=== PATIENT | female | born 1960 | race Caucasian/White ===

== ENCOUNTER 2018-08-11 19:32 | Inpatient (IN) | payer MEDICAID ==
[~2018-08-11] VITALS: Ht 154.9 cm; Wt 54.5 kg
[~2018-08-11 19:32] MED LIST: NO HOME MEDS
[2018-08-11] MEDS ORDERED: LORazepam 2 mg/ml vial IV ONE ×2 (20:10)
[2018-08-11 20:31] LABS: BASOPHILS # (AUTO) 0.1 X10'3 (0-0.2); BASOPHILS % (AUTO) 0.4 % (0-1); EOSINOPHILS # (AUTO) 0.2 X10'3 (0-0.9); EOSINOPHILS % (AUTO) 1.7 % (0-6); HEMOGLOBIN 12.9 g/dl (12.0-16.0); LYMPHOCYTES # (AUTO) 5.3 X10'3 (1.1-4.8); LYMPHOCYTES % (AUTO) 41.5 % (21-51); MEAN CORPUSCULAR HEMOGLOBIN 28.4 PG (27.0-31.0); MEAN CORPUSCULAR HGB CONC 32.3 % (33.0-36.5); MEAN CORPUSCULAR VOLUME 87.9 FL (78-98); MEAN PLATELET VOLUME 8.9 FL (7.4-10.4); MONOCYTES # (AUTO) 0.3 X10'3 (0-0.9); MONOCYTES % (AUTO) 2.2 % (2-12); NEUTROPHILS % (AUTO) 54.2 % (42-75); PLATELET COUNT 350 X10'3 (140-440); RED BLOOD COUNT 4.56 X10'6 (4.20-5.60); RED CELL DISTRIBUTION WIDTH 18.7 % (11.5-14.5); WHITE BLOOD COUNT 12.9 X10'3 (4.5-11.0)
[2018-08-11 20:45] LABS: ALANINE AMINOTRANSFERASE 43 U/L (12-78); ALBUMIN 3.2 G/DL (3.4-5.0); ALBUMIN/GLOBULIN RATIO 0.7 (1.1-1.5); ALKALINE PHOSPHATASE 145 IU/L (46-116); ANION GAP 9 (8-16); ASPARTATE AMINO TRANSFERASE 42 U/L (10-37); BILIRUBIN,TOTAL 1.2 MG/DL (0.1-1.0); BLOOD UREA NITROGEN 28 MG/DL (7-18); BUN/CREATININE RATIO 25.7 (6.6-38.0); CHLORIDE 103 MMOL/L (99-107); CREATININE 1.09 MG/DL (0.40-0.90); GLUCOSE 180 MG/DL (70-104); POTASSIUM 4.8 MMOL/L (3.5-5.1); SODIUM 140 MMOL/L (135-145); TOTAL CARBON DIOXIDE 27.9 MMOL/L (24-32); TOTAL PROTEIN 7.5 G/DL (6.4-8.2); eGFR 52 ML/MIN
[2018-08-11] MEDS ORDERED: temazepam 15mg capsule PO PRN (21:00)
[2018-08-11 21:03] LABS: INR 1.1 INR; PARTIAL THROMBOPLASTIN TIME 25 SECONDS (22-32); PROTHROMBIN TIME 11.2 SECONDS (9.0-12.0)
[2018-08-11 21:04] LABS: D-DIMER 4.15 MG/L FEU (0-0.50)
[2018-08-11] MEDS ORDERED: iohexol 350MG/ML 100ml bottle IV ONE (21:20)
[2018-08-11] MEDS ORDERED: dextrose 5%-1/2 normal saline 1,000 ML IV SCH (22:03)
[2018-08-11] MEDS: nicotine 21mg patch - 24 hr TD SCH (22:05)
[2018-08-11] MEDS ORDERED: diphenhydrAMINE 50 mg/ml inj IV PRN (22:05)
[2018-08-11] MEDS ORDERED: HYDROcodone/acetaminophen 5mg/325mg tablet PO PRN (22:05)
[2018-08-11] MEDS ORDERED: diphenhydrAMINE 25mg capsule PO PRN (22:05)
[2018-08-11] MEDS ORDERED: ondansetron/PF 4mg/2ml inj IV PRN (22:05)
[2018-08-11] MEDS ORDERED: bisacodyl 10mg suppository rectal RC PRN (22:05)
[2018-08-11] MEDS ORDERED: magnesium hydroxide 30ml (MOM) UD suspension PO PRN (22:05)
[2018-08-11] MEDS ORDERED: metoclopramide 5 mg/ml inj IV PRN (22:05)
[2018-08-11] MEDS ORDERED: acetaminophen 650mg rectal suppository RC PRN (22:05)
[2018-08-11] MEDS ORDERED: acetaminophen 325mg tablet PO PRN ×2 (22:05)
[2018-08-11] MEDS ORDERED: morphine 2 MG/ML inj. syringe IV PRN (22:05)
[2018-08-11] MEDS ORDERED: HYDROcodone/acetaminophen 10/325mg tab PO PRN (22:05)
[2018-08-11] MEDS ORDERED: HYDROmorphone 1 mg/ml syringe IV PRN (22:05)
[2018-08-11] MEDS ORDERED: mag hydrox/Alum hydrox/simeth 30ml oral suspension PO PRN (22:05)
[2018-08-11] MEDS ORDERED: hydrALAZINE 20mg/ml inj. IV PRN (22:05)
[2018-08-11] MEDS: atorvastatin 10mg tablet PO SCH (22:30)
[2018-08-11] MEDS: lisinopril 10 MG tablet PO SCH (22:30)
[2018-08-11] MEDS: CefTRIAXone/D5W-Rocephin 1gm 50 ML IV SCH (22:38)
[2018-08-11] MEDS ORDERED: azithromycin/NS 500mg/250ml 250 ML IV SCH (23:00)
[2018-08-11] MEDS: furosemide 10 MG/1 ML 10ml inj IV SCH (23:38)
[2018-08-11 23:40] VITALS: BP 155/93
[2018-08-12 00:38] LABS: CLARITY,URINE CLEAR (Clear); COLOR,URINE YELLOW (Yellow); GLUCOSE, URINE NEGATIVE (Neg); KETONES,URINE NEGATIVE (Neg); LEUKOCYTE ESTERASE ,URINE NEGATIVE (Neg); NITRITES, URINE NEGATIVE (Neg); OCCULT BLOOD,URINE NEGATIVE (Neg); PROTEIN,URINE 30 mg/dl (Neg); UROBILINOGEN,URINE 0.2 E.U/dL (0.2-1.0)
[2018-08-12 00:44] LABS: UA COLLECTION TYPE VOIDED
[2018-08-12 00:45] LABS: BACTERIA,URINE FEW /HPF (Neg); RBC,URINE 0-2 /HPF (0-2); SQUAMOUS EPITHELIAL CELL,UR FEW /LPF (FEW); WBC,URINE 0-4 /HPF (0-4)
[2018-08-12 00:49] LABS: URINE AMPHETAMINE SCREEN POSITIVE (Neg); URINE BARBITUATE SCREEN NEGATIVE (Neg); URINE BENZODIAZEPINES SCREEN NEGATIVE (Neg); URINE CANNABINOID SCREEN NEGATIVE (Neg); URINE COCAINE SCREEN NEGATIVE (Neg); URINE METHADONE SCREEN NEGATIVE (Neg); URINE OPIATE SCREEN POSITIVE (Neg); URINE PHENCYCLIDINE SCREEN NEGATIVE (Neg)
[2018-08-12 01:00] LABS: ALANINE AMINOTRANSFERASE 37 U/L (12-78); ALBUMIN 2.8 G/DL (3.4-5.0); ALBUMIN/GLOBULIN RATIO 0.7 (1.1-1.5); ALKALINE PHOSPHATASE 132 IU/L (46-116); ANION GAP 9 (8-16); ASPARTATE AMINO TRANSFERASE 44 U/L (10-37); BILIRUBIN,TOTAL 0.7 MG/DL (0.1-1.0); BLOOD UREA NITROGEN 28 MG/DL (7-18); BUN/CREATININE RATIO 25.7 (6.6-38.0); CALCIUM 7.9 MG/DL (8.5-10.1); CHLORIDE 105 MMOL/L (99-107); CHOL/HDL RATIO 4.7 (0.00-4.99); CHOLESTEROL 169 MG/DL (0-200); CREATININE 1.09 MG/DL (0.40-0.90); GLUCOSE 164 MG/DL (70-104); HDL CHOLESTEROL 36 MG/DL (35-60); LDL CHOLESTEROL 115 MG/DL (50-100); MAGNESIUM 1.7 MG/DL (1.5-2.4); PHOSPHORUS 3.9 MG/DL (2.3-4.5); SODIUM 140 MMOL/L (135-145); TOTAL CARBON DIOXIDE 26.3 MMOL/L (24-32); TOTAL PROTEIN 6.7 G/DL (6.4-8.2); TRIGLYCERIDES 163 MG/DL (20-135); TROPONIN I 0.05 NG/ML (0.0-0.05); eGFR 52 ML/MIN
[2018-08-12 01:12] LABS: POTASSIUM 3.8 MMOL/L (3.5-5.1)
[2018-08-12 07:00] VITALS: BP 127/72
[2018-08-12] MEDS: CefTRIAXone/D5W-Rocephin 1gm 50 ML IV SCH (07:35)
[2018-08-12] MEDS: methylPREDNISolone sod succ 125mg/2ml vial IV SCH ×2 (07:38→20:13)
[2018-08-12] MEDS: lisinopril 10 MG tablet PO SCH (07:40)
[2018-08-12] MEDS: docusate sod 100mg capsule PO SCH ×2 (07:40→20:18)
[2018-08-12] MEDS: furosemide 10 MG/1 ML 10ml inj IV SCH (07:40)
[2018-08-12] MEDS: aspirin 81mg tab.chew PO SCH (07:41)
[2018-08-12] MEDS: atorvastatin 10mg tablet PO SCH (07:41)
[2018-08-12] MEDS: heparin, porcine 5000 units/ml vial SQ SCH ×2 (07:42→20:19)
[2018-08-12] MEDS: nicotine 21mg patch - 24 hr TD SCH (07:50)
[2018-08-12] MEDS: nitroGLYCERIN 0.2mg/hour patch TD SCH (07:54)
[2018-08-12 10:56] LABS: BASOPHILS % (AUTO) 0.5 % (0-1); EOSINOPHILS # (AUTO) 0.1 X10'3 (0-0.9); EOSINOPHILS % (AUTO) 1.2 % (0-6); HEMOGLOBIN 12.9 g/dl (12.0-16.0); LYMPHOCYTES # (AUTO) 1.9 X10'3 (1.1-4.8); LYMPHOCYTES % (AUTO) 19.8 % (21-51); MEAN CORPUSCULAR HEMOGLOBIN 28.5 PG (27.0-31.0); MEAN CORPUSCULAR HGB CONC 32.2 % (33.0-36.5); MEAN CORPUSCULAR VOLUME 88.7 FL (78-98); MEAN PLATELET VOLUME 9.5 FL (7.4-10.4); MONOCYTES # (AUTO) 0.2 X10'3 (0-0.9); MONOCYTES % (AUTO) 1.9 % (2-12); NEUTROPHILS # (AUTO) 7.3 X10'3 (1.8-7.7); NEUTROPHILS % (AUTO) 76.6 % (42-75); PLATELET COUNT 340 X10'3 (140-440); RED BLOOD COUNT 4.51 X10'6 (4.20-5.60); RED CELL DISTRIBUTION WIDTH 18.7 % (11.5-14.5); WHITE BLOOD COUNT 9.5 X10'3 (4.5-11.0)
[2018-08-12 20:00] VITALS: BP 138/71
[2018-08-12] MEDS ORDERED: famotidine 20mg tablet PO SCH (21:00)
[2018-08-13] VITALS: BP 138/71
[2018-08-13 05:41] LABS: BASOPHILS % (AUTO) 0 % (0-1); EOSINOPHILS # (AUTO) 0.2 X10'3 (0-0.9); EOSINOPHILS % (AUTO) 1.1 % (0-6); HEMATOCRIT 40.6 % (35.0-45.0); HEMOGLOBIN 13.1 g/dl (12.0-16.0); LYMPHOCYTES % (AUTO) 10.8 % (21-51); MEAN CORPUSCULAR HEMOGLOBIN 28.6 PG (27.0-31.0); MEAN CORPUSCULAR HGB CONC 32.4 % (33.0-36.5); MEAN CORPUSCULAR VOLUME 88.4 FL (78-98); MEAN PLATELET VOLUME 9.8 FL (7.4-10.4); MONOCYTES # (AUTO) 0.2 X10'3 (0-0.9); MONOCYTES % (AUTO) 1.4 % (2-12); NEUTROPHILS # (AUTO) 15.7 X10'3 (1.8-7.7); NEUTROPHILS % (AUTO) 86.7 % (42-75); PLATELET COUNT 362 X10'3 (140-440); RED CELL DISTRIBUTION WIDTH 18.8 % (11.5-14.5); WHITE BLOOD COUNT 18.2 X10'3 (4.5-11.0)
[2018-08-13 06:04] LABS: ALANINE AMINOTRANSFERASE 35 U/L (12-78); ALBUMIN 2.9 G/DL (3.4-5.0); ALBUMIN/GLOBULIN RATIO 0.6 (1.1-1.5); ALKALINE PHOSPHATASE 146 IU/L (46-116); ANION GAP 11 (8-16); ASPARTATE AMINO TRANSFERASE 28 U/L (10-37); BILIRUBIN,TOTAL 0.5 MG/DL (0.1-1.0); BLOOD UREA NITROGEN 32 MG/DL (7-18); BUN/CREATININE RATIO 22.7 (6.6-38.0); CHLORIDE 102 MMOL/L (99-107); CREATININE 1.41 MG/DL (0.40-0.90); GLUCOSE 171 MG/DL (70-104); POTASSIUM 3.7 MMOL/L (3.5-5.1); SODIUM 140 MMOL/L (135-145); TOTAL CARBON DIOXIDE 27.5 MMOL/L (24-32); TOTAL PROTEIN 7.5 G/DL (6.4-8.2); eGFR 38 ML/MIN
[2018-08-13 07:00] VITALS: BP 167/90
[2018-08-13] MEDS: docusate sod 100mg capsule PO SCH (08:00)
[2018-08-13] MEDS: nicotine 21mg patch - 24 hr TD SCH (08:00)
[2018-08-13] MEDS: furosemide 10 MG/1 ML 10ml inj IV SCH (08:27)
[2018-08-13 08:28] VITALS: BP_SYST 160
[2018-08-13] MEDS: aspirin 81mg tab.chew PO SCH (08:28)
[2018-08-13] MEDS: atorvastatin 10mg tablet PO SCH (08:28)
[2018-08-13] MEDS: lisinopril 10 MG tablet PO SCH (08:28)
[2018-08-13] MEDS: methylPREDNISolone sod succ 125mg/2ml vial IV SCH (08:28)
[2018-08-13] MEDS: heparin, porcine 5000 units/ml vial SQ SCH (08:29)
[2018-08-13] MEDS: nitroGLYCERIN 0.2mg/hour patch TD SCH (08:40)
[2018-08-13] MEDS ORDERED: LISI10TA4 PO (08:49)
[2018-08-13] MEDS ORDERED: FURO-150 PO (08:49)
[2018-08-13] MEDS ORDERED: CARV3.12 PO (08:50)
== END 2018-08-13 10:40 | disposition home or self-care (01) | DRG 194 ==
LOC: ER 19:32 → ED HOLD 22:03 → SUR 3N 22:59
PROVIDERS: ADMIT Family Medicine; ATTEND Internal Medicine
PROC: B32T1ZZ Computerized Tomography (CT Scan) of Left Pulmonary Artery using Low Osmolar Contrast (ICD-10-PCS; principal; 2018-08-11)
PROC: B3201ZZ Computerized Tomography (CT Scan) of Thoracic Aorta using Low Osmolar Contrast (ICD-10-PCS; 2018-08-11)
PROC: B32S1ZZ Computerized Tomography (CT Scan) of Right Pulmonary Artery using Low Osmolar Contrast (ICD-10-PCS; 2018-08-11)
DX: I13.0 Hypertensive heart and chronic kidney disease with heart failure and stage 1 through stage 4 chronic kidney disease, or unspecified chronic kidney disease (principal); J44.1 Chronic obstructive pulmonary disease with (acute) exacerbation; N18.3 Chronic kidney disease, stage 3 (moderate); F15.90 Other stimulant use, unspecified, uncomplicated; F17.210 Nicotine dependence, cigarettes, uncomplicated; I25.10 Atherosclerotic heart disease of native coronary artery without angina pectoris; I50.23 Acute on chronic systolic (congestive) heart failure; R55 Syncope and collapse; R09.02 Hypoxemia; Z90.49 Acquired absence of other specified parts of digestive tract; I25.2 Old myocardial infarction; Z28.21 Immunization not carried out because of patient refusal; Z71.51 Drug abuse counseling and surveillance of drug abuser; Z71.6 Tobacco abuse counseling; Z79.899 Other long term (current) drug therapy
CPT/HCPCS: 36415; 70450; 71045; 71275; 80053; 80061; 80305; 81001; 83036; 83735; 83880; 84100; 84443; 84484; 85025; 85379; 85610; 85730; 87070; 93005; 93306; 93880; 94760; 96374; 99285; G0378; J0456; J0696; J1644; J1940; J2060; J2930; Q2037; Q9967

== ENCOUNTER 2019-07-21 08:28 | Inpatient (IN) | payer MEDICAID ==
[~2019-07-21] VITALS: Ht 154.9 cm; Wt 54.5 kg
[~2019-07-21 08:28] MED LIST changes: +ASPI-1071 PO; +CARV3.12 PO; +CLOP75TA35 PO; +LISI-642 PO; +NITR0.4T51 SL; -NO HOME MEDS; +POTA10TA36 PO
[2019-07-21] MEDS ORDERED: methylPREDNISolone sod succ 125mg/2ml vial IV ONE (08:35)
[2019-07-21] MEDS ORDERED: furosemide 40mg/4ml inj IV ONE (08:35)
[2019-07-21] MEDS ORDERED: levoFLOXACIN-Levaquin 750MG/D5 150 ML IV ONE (08:35)
[2019-07-21] MEDS ORDERED: ipratropium/albuterol 3ml nebule NEB ONE (08:35)
--- NOTE | 2019-07-21 09:30 | NUR ---
IN ROOM, DAYANA HERNADEZ ATTEMPTED BOTH IJ'S AND WAS ABLE TO DRAW BLOOD FROM ATTEMPTED LEFT FOREARM.
[2019-07-21 09:46] LABS: BASOPHILS # (AUTO) 0.2 X10'3 (0-0.2); EOSINOPHILS # (AUTO) 0.1 X10'3 (0-0.9); EOSINOPHILS % (AUTO) 0.3 % (0-6); HEMOGLOBIN 13.1 g/dl (12.0-16.0); LYMPHOCYTES # (AUTO) 4.4 X10'3 (1.1-4.8); MEAN CORPUSCULAR HEMOGLOBIN 30.2 PG (27.0-31.0); MEAN CORPUSCULAR HGB CONC 33.7 g/dL (33.0-36.5); MEAN CORPUSCULAR VOLUME 89.8 FL (78-98); MEAN PLATELET VOLUME 9.1 FL (7.4-10.4); MONOCYTES # (AUTO) 0.9 X10'3 (0-0.9); MONOCYTES % (AUTO) 4.4 % (2-12); NEUTROPHILS # (AUTO) 15.2 X10'3 (1.8-7.7); NEUTROPHILS % (AUTO) 73.3 % (42-75); PLATELET COUNT 348 X10'3 (140-440); RED BLOOD COUNT 4.34 X10'6 (4.20-5.60); RED CELL DISTRIBUTION WIDTH 15.2 % (11.5-14.5); WHITE BLOOD COUNT 20.8 X10'3 (4.5-11.0)
--- NOTE | 2019-07-21 09:46 | NUR ---
PICC RN PLACED 20 GAUGE PIV TO LEFT UPPER ARM, MORE BLOOD DRAWN
[2019-07-21 09:56] LABS: ALANINE AMINOTRANSFERASE 21 U/L (12-78); ALBUMIN 3.5 G/DL (3.4-5.0); ALBUMIN/GLOBULIN RATIO 0.7 (1.1-1.5); ALKALINE PHOSPHATASE 115 IU/L (46-116); ANION GAP 9 (8-16); ASPARTATE AMINO TRANSFERASE 18 U/L (10-37); BILIRUBIN,TOTAL 0.7 MG/DL (0.1-1.0); BLOOD UREA NITROGEN 18 MG/DL (7-18); BUN/CREATININE RATIO 19.4 (6.6-38.0); CHLORIDE 104 MMOL/L (99-107); CREATININE 0.93 MG/DL (0.40-0.90); GLUCOSE 110 MG/DL (70-104); POTASSIUM 4.5 MMOL/L (3.5-5.1); SODIUM 141 MMOL/L (135-145); TOTAL CARBON DIOXIDE 27.6 MMOL/L (24-32); TOTAL PROTEIN 8.5 G/DL (6.4-8.2); eGFR 62 ML/MIN
[2019-07-21 10:03] LABS: PARTIAL THROMBOPLASTIN TIME 26 SECONDS (22-32)
[2019-07-21 10:51] LABS: URINE HCG NEGATIVE (NEG)
[2019-07-21 10:53] LABS: CLARITY,URINE CLEAR (Clear); COLOR,URINE STRAW (Yellow); GLUCOSE, URINE NEGATIVE (Neg); KETONES,URINE NEGATIVE (Neg); LEUKOCYTE ESTERASE ,URINE NEGATIVE (Neg); NITRITES, URINE NEGATIVE (Neg); OCCULT BLOOD,URINE NEGATIVE (Neg); PROTEIN,URINE TRACE mg/dl (Neg); UROBILINOGEN,URINE 0.2 E.U/dL (0.2-1.0)
[2019-07-21 10:57] LABS: UA COLLECTION TYPE CLN CATCH MIDSTREAM; URINE AMPHETAMINE SCREEN POSITIVE (Neg); URINE BARBITUATE SCREEN NEGATIVE (Neg); URINE BENZODIAZEPINES SCREEN NEGATIVE (Neg); URINE CANNABINOID SCREEN NEGATIVE (Neg); URINE COCAINE SCREEN NEGATIVE (Neg); URINE METHADONE SCREEN NEGATIVE (Neg); URINE OPIATE SCREEN POSITIVE (Neg); URINE PHENCYCLIDINE SCREEN NEGATIVE (Neg)
[2019-07-21 11:08] LABS: BACTERIA,URINE FEW /HPF (Neg); RBC,URINE NONE SEEN /HPF (0-2); SQUAMOUS EPITHELIAL CELL,UR FEW /LPF (FEW); WBC,URINE 0-4 /HPF (0-4)
[2019-07-21 11:09] LABS: MUCUS STRANDS NONE SEEN /LPF (Neg)
--- NOTE | 2019-07-21 11:10 | NUR ---
PATIENT WANTS TO LEAVE AMA, DR CORDOVA DISCUSSED POSSIBILITY UP TO AND INCLUDING AND PATIENT AGREED TO BE ADMITTED
[2019-07-21] MEDS ORDERED: LISI10TA4 PO (11:26)
[2019-07-21] MEDS ORDERED: FURO20TA4 PO (11:26)
[2019-07-21] MEDS ORDERED: magnesium 2GM in 50ml NS 50 ML IV PRN (11:50)
[2019-07-21] MEDS ORDERED: potassium Cl 20 mEq SR tablet PO PRN ×2 (11:50)
[2019-07-21] MEDS ORDERED: magnesium 4gm in 100ml NS 100 ML IV PRN (11:50)
[2019-07-21] MEDS ORDERED: magnesium Cl slow-release 64mg tablet PO PRN (11:50)
[2019-07-21] MEDS ORDERED: ondansetron/PF 4mg/2ml inj IV PRN (11:50)
[2019-07-21] MEDS ORDERED: potassium CL 10mEq/100ml bag 100 ML IV PRN ×2 (11:50)
[2019-07-21] MEDS ORDERED: acetaminophen 325mg tablet PO PRN (11:50)
[2019-07-21] MEDS ORDERED: ipratropium/albuterol 3ml nebule NEB PRN (12:05)
[2019-07-21] MEDS ORDERED: CARV3.122 PO (12:25)
[2019-07-21] MEDS ORDERED: POTA10CA44 PO (12:26)
[2019-07-21] MEDS ORDERED: NITR0.4T SL (12:26)
[2019-07-21] MEDS: CefTRIAXone/D5W-Rocephin 1gm 50 ML IV SCH (12:43)
--- NOTE | 2019-07-21 12:55 | NUR ---
Patient in ED. I have received report from Lyla ANNE and had the opportunity to ask questions. Awaiting patient's arrival to PCU room 3024H.
--- NOTE | 2019-07-21 12:55 | NUR ---
PHONE REPORT TO RAMÓN ANNE PCU PATIENT TO ROOM 3023B VIA RYAN WITH RN AND MONITOR
--- NOTE | 2019-07-21 13:00 | NUR ---
Patient arrived via gurney. Ambulated to bed with no difficulty. Bed locked and lowered, call light within reach, non-skid socks on.
[2019-07-21 13:30] VITALS: BP 136/67
[2019-07-21] MEDS: ipratropium/albuterol 3ml nebule NEB SCH ×2 (13:45→20:32)
[2019-07-21] MEDS: azithromycin/NS 500mg/250ml 250 ML IV SCH (14:24)
[2019-07-21] MEDS: furosemide 10 MG/1 ML 10ml inj IV SCH (14:25)
[2019-07-21] MEDS ORDERED: pneumococcal 23-VAL P-sac vacc 25 mcg/0.5ml vial IMVAC ONE (14:35)
[2019-07-21 15:00] VITALS: BP 146/78
--- NOTE | 2019-07-21 16:41 | NUR ---
Telephoned Dr. West re adding Mg to previously drawn labs, agreeable.
[2019-07-21 18:00] VITALS: BP 135/63
--- NOTE | 2019-07-21 18:40 | NUR ---
Problems reprioritized. Patient report given, questions answered & plan of care reviewed with DAYANA Love.
--- NOTE | 2019-07-21 18:44 | NUR ---
Patient in room PCU 3023. I have received report from Jessica ANNE and had the opportunity to ask questions and assume patient care.
[2019-07-21 19:04] LABS: MAGNESIUM 1.8 MG/DL (1.5-2.4)
[2019-07-21] MEDS: methylPREDNISolone sod succ 125mg/2ml vial IV SCH (19:51)
[2019-07-21] MEDS: heparin, porcine 5000 units/ml vial SQ SCH (19:52)
[2019-07-21 22:00] VITALS: BP 143/55
[2019-07-22] MEDS: ipratropium/albuterol 3ml nebule NEB SCH (02:00)
[2019-07-22 02:30] VITALS: BP 121/83
--- NOTE | 2019-07-22 04:59 | NUR ---
Pt refused morning labs, spoke with pt regarding morning labs, pt states she has been "poked too much"
[2019-07-22 06:00] VITALS: BP 128/55
--- NOTE | 2019-07-22 06:19 | NUR ---
Problems reprioritized. Patient report given, questions answered & plan of care reviewed with Shanel ANNE and Leandra ANNE.
--- NOTE | 2019-07-22 06:25 | NUR ---
Orientee documentation: I have reviewed and agree with all interventions, assessments performed and documented by Karlo ANNE.
--- NOTE | 2019-07-22 06:30 | NUR ---
Patient in room PCU 3023. I have received report from DAYANA Abreu and had the opportunity to ask questions and assume patient care.
--- NOTE | 2019-07-22 07:21 | NUR ---
Patient is refusing to allow labs to be drawn this morning. Patient has stated that she is " leaving as soon as her gets here" Patient will be leaving AMA and understands that she will have to sign and agree that this is against medical advise. Will contact MD before patient leaves. Will continue to monitor.
[2019-07-22] MEDS ORDERED: K and/or MAG REPLACEMENT MC SCH (08:00)
[2019-07-22] MEDS: CefTRIAXone/D5W-Rocephin 1gm 50 ML IV SCH (08:00)
[2019-07-22] MEDS: furosemide 10 MG/1 ML 10ml inj IV SCH (08:00)
[2019-07-22] MEDS: heparin, porcine 5000 units/ml vial SQ SCH (08:00)
[2019-07-22] MEDS: methylPREDNISolone sod succ 125mg/2ml vial IV SCH (08:00)
[2019-07-22] MEDS: azithromycin/NS 500mg/250ml 250 ML IV SCH (08:00)
--- NOTE | 2019-07-22 09:09 | NUR ---
Patient is refusing all medications and care at this time. Patient is awaiting as her ride to leave AMA. Patient has been educated on the risks of leaving and Dr. West has been notified. Will monitor until discharge.
--- NOTE | 2019-07-22 09:25 | NUR ---
Pt left AMA with jaxon at 0925. Explained all the risk and benefits to pt. Pt understood. Refused all morning medications. Tele monitor and IV removed with cannula intact.
== END 2019-07-22 09:25 | disposition left against medical advice (07) | DRG 140 ==
LOC: ER 08:28 → ED HOLD 11:50 → PCU 3S 13:00
PROVIDERS: ADMIT Internal Medicine; ATTEND Internal Medicine
DX: J44.0 Chronic obstructive pulmonary disease with (acute) lower respiratory infection (principal); I50.23 Acute on chronic systolic (congestive) heart failure; J18.9 Pneumonia, unspecified organism; I11.0 Hypertensive heart disease with heart failure; F17.210 Nicotine dependence, cigarettes, uncomplicated; Z53.29 Procedure and treatment not carried out because of patient's decision for other reasons; I25.10 Atherosclerotic heart disease of native coronary artery without angina pectoris; J44.1 Chronic obstructive pulmonary disease with (acute) exacerbation; Z66 Do not resuscitate; I25.2 Old myocardial infarction; Z90.49 Acquired absence of other specified parts of digestive tract; Z28.21 Immunization not carried out because of patient refusal
CPT/HCPCS: 36415; 71045; 80053; 80305; 81001; 81025; 83605; 83735; 83880; 84145; 84484; 85025; 85610; 85730; 87040; 87081; 90732; 93005; 93308; 94640; 94760; 96365; 96375; 99285; G0378; J0456; J0696; J1644; J1940; J1956; J2930